=== PATIENT | male | born 1960 | race African-American/Black ===

== ENCOUNTER 2017-07-18 20:55 | Emergency (ER) | payer SELFPAY ==
[~2017-07-18] VITALS: Ht 180.3 cm; Wt 117.0 kg
[2017-07-18] MEDS ORDERED: IBUPROFEN 800MG TABLET PO ONE (22:45)
[2017-07-18 23:10] VITALS: BP 165/88
== END 2017-07-18 23:20 | disposition home or self-care (01) ==
LOC: ER 21:12
DX: S00.83XA Contusion of other part of head, initial encounter (principal); S10.83XA Contusion of other specified part of neck, initial encounter; S20.229A Contusion of unspecified back wall of thorax, initial encounter; I10 Essential (primary) hypertension; E11.9 Type 2 diabetes mellitus without complications; V43.52XA Car driver injured in collision with other type car in traffic accident, initial encounter; Y93.89 Activity, other specified; Y99.8 Other external cause status; Y92.89 Other specified places as the place of occurrence of the external cause; Z90.49 Acquired absence of other specified parts of digestive tract; Z98.890 Other specified postprocedural states
CPT/HCPCS: 99282